=== PATIENT | male | born 1930 | race Caucasian/White ===

== ENCOUNTER → 2018-04-13 | Outpatient (REF) | payer MEDICARE, BC ==
[2018-04-13 12:36] LABS: PERCENT SATURATION 31.8 % (19.7-50.0)
== END ==
LOC: M LAB REF 11:46
PROVIDERS: ATTEND Nurse Practitioner Family
DX: R25.2 Cramp and spasm (principal); R79.89 Other specified abnormal findings of blood chemistry; R79.0 Abnormal level of blood mineral

== ENCOUNTER → 2020-01-03 | Outpatient (REF) | payer MEDICARE, BC ==
[2020-01-03 12:26] LABS: MAGNESIUM LEVEL 2.3 MG/DL (1.8-2.4); PHOSPHORUS LEVEL 2.6 MG/DL (2.5-4.9); POTASSIUM SERUM 4.4 MEQ/L (3.5-5.1)
== END ==
LOC: M LAB REF 11:21
PROVIDERS: ATTEND Physician Assistant
DX: R25.2 Cramp and spasm (principal)

== ENCOUNTER → 2020-01-10 | Outpatient (CLI) | payer MEDICARE, BC ==
[2020-01-10 17:47] LABS: CALCIUM LEVEL 9.8 MG/DL (8.8-10.2); CREATININE FOR GFR 1.24 MG/DL (0.70-1.30); GLOMERULAR FILTRATION RATE 58.7 (>35); POTASSIUM SERUM 4.5 MEQ/L (3.5-5.1)
== END ==
LOC: M WUC 11:13
PROVIDERS: ATTEND Nurse Practitioner Women's Health
DX: C61 Malignant neoplasm of prostate (principal); R97.20 Elevated prostate specific antigen [PSA]
CPT/HCPCS: 36415; 80048; G0463

== ENCOUNTER → 2020-01-25 | Outpatient (CLI) | payer MEDICARE, BC ==
[~2020-01-25] MED LIST: ISOVUE-370 76% 100ML VIAL As Ordered ONE
--- NOTE | 2020-01-25 10:36 | REP ---
INDICATION: PROSTATE CA W/ ELEVATED PSA COMPARISON: None. TECHNIQUE: Axial contrast-enhanced images from the lung bases to the pubic symphysis using 100 cc Isovue 370 intravenous contrast material with coronal and sagittal reformations. Precontrast and delayed images of the abdomen were obtained as well. FINDINGS: The liver includes a 1.5 cm cyst in the right hepatic lobe approaching the dome. Multiple scattered geographic areas of hyperenhancement within the liver are noted and appear relatively similar to chest CT dated 10/29/2012. These findings likely represent transient hepatic attenuation discrepancies (KALI) and possible hemangiomas. Spleen, pancreas, and bilateral adrenal glands are normal. Kidneys demonstrate innumerable bilateral simple cysts measuring up to 3.3 cm in the right kidney and 4.7 cm in the left kidney. Prior cholecystectomy noted. The enteric system demonstrates colonic diverticulosis and no evidence for acute obstruction or inflammatory process. A normal terminal ileum and appendix are identified in the right lower quadrant. There is evidence for a 3 cm duodenal diverticulum adjacent to the head of the pancreas. Pelvis demonstrates normal bladder and relatively unremarkable appearance of the prostate gland. A 3 cm fat containing periumbilical hernia is identified. No ascites. No free air. No intraperitoneal or retroperitoneal adenopathy. Atherosclerotic changes to the aorta and vasculature noted without aneurysm or dissection. Musculoskeletal structures demonstrate degenerative changes without focal osseous abnormality. Lung bases demonstrate a 3 mm subpleural nodule in the posterior right lower lobe (image 18). IMPRESSION: 1. Hepatic findings as described above appear essentially stable/chronic and benign without significant change from findings on chest CT dated 2012. 2. Bilateral renal cysts. 3. Diverticulosis without acute diverticulitis. 4. 3 mm subpleural nodule in the posterior right lower lobe which cannot be compared to prior chest CT due to prior element of atelectasis. Consider 6-9 month follow-up examination if necessary. 5. Further chronic/nonacute findings as described above. <Electronically signed by Luis A Bunn > 01/25/20 [id number]
--- NOTE | 2020-01-25 14:11 | REP ---
INDICATION: PROSTATE CA W/ ELEVATED PSA. COMPARISON: Comparison is made with images from January 26, 2020 CT abdomen and pelvis study.. TECHNIQUE/RADIOTRACER AND DOSE: 21.6 mCi of technetium 99m MDP was injected and standard whole-body bone scanning is acquired. FINDINGS: There is a normal distribution of skeletal tracer with uptake in bilateral kidneys and in the urinary bladder. There is no evidence to suggest skeletal metastatic disease. There is arthritic uptake in bilateral knees, bilateral wrists and fingers. Mild osteoarthritic facet uptake is seen in the lower lumbar spine. There is mild arthritic uptake in the midfoot articulations bilaterally. IMPRESSION: Arthritic uptake pattern. No evidence to suggest skeletal metastatic disease.. <Electronically signed by Santino Osborn > 01/25/20 [id number]
== END ==
LOC: M RAD 09:43
PROVIDERS: ATTEND Nurse Practitioner Women's Health
DX: C61 Malignant neoplasm of prostate (principal); R97.20 Elevated prostate specific antigen [PSA]; K57.90 Diverticulosis of intestine, part unspecified, without perforation or abscess without bleeding; N28.1 Cyst of kidney, acquired; R91.1 Solitary pulmonary nodule; I70.0 Atherosclerosis of aorta; I25.10 Atherosclerotic heart disease of native coronary artery without angina pectoris; M17.0 Bilateral primary osteoarthritis of knee; M19.031 Primary osteoarthritis, right wrist; M19.032 Primary osteoarthritis, left wrist; M19.041 Primary osteoarthritis, right hand; M19.042 Primary osteoarthritis, left hand
CPT/HCPCS: 74178; 78306; A9503; Q9967

== ENCOUNTER → 2020-01-30 | Outpatient (CLI) | payer MEDICARE, BC ==
--- NOTE | 2020-01-30 12:17 | REP ---
INDICATION: BILATERAL LEG CRAMPS COMPARISON: None. TECHNIQUE: Real time everett scale and Duplex Doppler evaluation of the bilateral lower extremity arterial vasculature using linear high frequency transducer. FINDINGS: Everett scale and duplex doppler images demonstrate moderate amounts of atheromatous plaquing with areas of minimal narrowing but no focal stenosis identified. Doppler interrogation demonstrates normal biphasic arterial wave forms and velocities bilaterally. Peak systolic velocities (cm/sec) Common femoral artery: Right 58; Left 83 Profunda femoris: Right 79; Left 60 SFA (proximal): Right 84; Left 94 SFA (mid): Right 86; Left 79 SFA (distal): Right 57; Left 74 Popliteal artery: Right 77; Left 80 JANEY (prox.): Right 76; Left 49 Tibioperoneal trunk: Right 69; Left 76 WARRANTY CLERK (prox.): Right 58; Left 78 WARRANTY CLERK (distal): Right 112; Left 58 JANEY (distal): Right 54; Left 54 IMPRESSION: Atheromatous changes with areas of narrowing but no obvious focal occlusion or stenosis. <Electronically signed by Trent Everett > 01/30/20 [id number]
== END ==
LOC: M RAD 11:03
PROVIDERS: ATTEND Family Medicine
DX: R25.2 Cramp and spasm (principal)

== ENCOUNTER → 2020-09-15 | Outpatient (CLI) | payer MEDICARE, BC | LOC: M WUC 09:58 | PROVIDERS: ATTEND Urology | DX: C61 Malignant neoplasm of prostate (principal) ==

== ENCOUNTER → 2020-09-19 | Outpatient (CLI) | payer BC ==
--- NOTE | 2020-09-19 09:40 | REP ---
INDICATION: RT SOLITARY PULMONARY NODULE COMPARISON: 10/29/2012 TECHNIQUE: Axial contrast enhanced images from the thoracic inlet to the upper abdomen with coronal and sagittal reformations using 75 ml Isovue 370 intravenous contrast material. This CT examination was performed using the following dose reduction techniques: Automated exposure control, adjustment of mA and/or kv according to the patient's size, and use of iterative reconstruction technique. FINDINGS: Bilateral lung lamar demonstrate mild scattered age-related interstitial changes. 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 No acute consolidation, new nodule or mass. No effusion. No pneumothorax. Tracheobronchial tree is patent. No adenopathy. Mediastinum demonstrates stable atherosclerotic changes to the thoracic aorta and coronary arteries without aortic aneurysm/dissection or cardiomegaly. No pericardial effusion. Musculoskeletal structures are intact. IMPRESSION: 1. Stable nodule consistent with granuloma. 2. No acute mediastinal or pleuroparenchymal process. <Electronically signed by Luis A Bunn > 09/19/20 [id number]
== END ==
LOC: M RAD 09:05
PROVIDERS: ATTEND Family Medicine
DX: R91.1 Solitary pulmonary nodule (principal)
CPT/HCPCS: 71260; Q9967

== ENCOUNTER 2020-11-15 13:48 | Emergency (ER) | payer BC, MEDICARE ==
[~2020-11-15] VITALS: Ht 177.8 cm; Wt 77.3 kg
[2020-11-15] MEDS ORDERED: LOSA50TA88 PO (13:55)
[2020-11-15] MEDS ORDERED: FAMO20TA PO (13:55)
[2020-11-15] MEDS ORDERED: ROPI1TAB3 PO (13:55)
[2020-11-15 14:44] LABS: BASO % 0.4 % (0.0-1.0); EOS # 0.2 10^3/uL (0.0-0.5); EOS % 2.2 % (0.0-3.0); HEMATOCRIT 38.6 % (42.0-52.0); HEMOGLOBIN 12.6 g/dl (13.5-17.5); LYMPH # 1.2 10^3/uL (1.5-5.0); LYMPH % 17.5 % (24.0-44.0); MEAN CORPUSCULAR HEMOGLOBIN 30.1 pg (27.0-33.0); MEAN CORPUSCULAR HGB CONC 32.6 g/dl (32.0-36.5); MEAN CORPUSCULAR VOLUME 92.3 fl (80.0-96.0); MONO # 0.6 10^3/uL (0.0-0.8); MONO % 7.9 % (2.0-8.0); NEUTROPHILS % 71.7 % (36.0-66.0); PLATELET COUNT, AUTOMATED 169 10^3/uL (150-450); RED BLOOD COUNT 4.18 10^6/uL (4.30-6.10)
[2020-11-15 16:15] VITALS: BP 161/81
[2020-11-15] MEDS ORDERED: MECL1TAB31 PO (16:26)
--- NOTE | 2020-11-16 20:17 | ECGEPIP ---
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
== END 2020-11-15 16:35 | disposition home or self-care (01) ==
LOC: M ED 13:48
DX: R42 Dizziness and giddiness (principal); I44.0 Atrioventricular block, first degree; Z88.0 Allergy status to penicillin; Z79.899 Other long term (current) drug therapy

== ENCOUNTER 2021-12-18 02:35 | Emergency (ER) | payer MEDICARE, BC ==
[~2021-12-18] VITALS: Ht 177.8 cm; Wt 79.9 kg
[~2021-12-18 02:35] MED LIST changes: +FAMO20TA PO; -ISOVUE-370 76% 100ML VIAL As Ordered ONE; +LOSA50TA28 PO; +MECL1TAB31 PO; +ROPI1TAB3 PO
[2021-12-18] MEDS ORDERED: GALZ50CA PO (02:53)
[2021-12-18] MEDS ORDERED: MAGN250T7 PO (02:53)
[2021-12-18 05:57] LABS: CALCIUM LEVEL 9.8 MG/DL (8.8-10.2); CREATININE FOR GFR 1.23 MG/DL (0.70-1.30); MAGNESIUM LEVEL 2.4 MG/DL (1.8-2.4); POTASSIUM SERUM 4.4 MEQ/L (3.5-5.1)
[2021-12-18 07:50] LABS: BASO % 0.5 % (0.0-1.0); EOS # 0.2 10^3/uL (0.0-0.5); EOS % 2.1 % (0.0-3.0); HEMATOCRIT 40.6 % (42.0-52.0); HEMOGLOBIN 13.4 g/dl (13.5-17.5); LYMPH # 1.5 10^3/uL (1.5-5.0); LYMPH % 21.1 % (24.0-44.0); MEAN CORPUSCULAR HEMOGLOBIN 30.9 pg (27.0-33.0); MEAN CORPUSCULAR VOLUME 93.5 fl (80.0-96.0); MONO # 0.6 10^3/uL (0.0-0.8); MONO % 8.8 % (2.0-8.0); NEUTROPHILS # 4.9 10^3/uL (1.5-8.5); NEUTROPHILS % 67.2 % (36.0-66.0); PLATELET COUNT, AUTOMATED 182 10^3/uL (150-450); RED BLOOD COUNT 4.34 10^6/uL (4.30-6.10); WHITE BLOOD COUNT 7.3 10^3/uL (4.0-10.0)
[2021-12-18] MEDS ORDERED: METH-1164 PO (08:51)
[2021-12-18 09:11] VITALS: BP 160/72
== END 2021-12-18 09:13 | disposition home or self-care (01) ==
LOC: M ED 02:35
DX: M62.838 Other muscle spasm (principal); S70.311A Abrasion, right thigh, initial encounter; I10 Essential (primary) hypertension; Z85.46 Personal history of malignant neoplasm of prostate; Z88.0 Allergy status to penicillin; Z79.899 Other long term (current) drug therapy; X58.XXXA Exposure to other specified factors, initial encounter; Y92.89 Other specified places as the place of occurrence of the external cause